=== PATIENT | male | born 1960 | race Caucasian/White ===

== ENCOUNTER 2025-09-23 07:40 | Outpatient (CLI) | payer OTHER ==
[2025-09-23 09:06] LABS: Estimated GFR - POC 84.0
[2025-09-23] MEDS ORDERED: Iopamidol 300 61% 100 ML VIAL FS ONE (11:29)
== END 2025-09-23 07:41 | disposition home or self-care (01) ==
LOC: CSHCT 07:40
PROVIDERS: ATTEND Internal Medicine
DX: R31.9 Hematuria, unspecified (principal); J30.1 Allergic rhinitis due to pollen; N32.89 Other specified disorders of bladder; K80.20 Calculus of gallbladder without cholecystitis without obstruction; K43.9 Ventral hernia without obstruction or gangrene; J32.8 Other chronic sinusitis; H74.8X1 Other specified disorders of right middle ear and mastoid
CPT/HCPCS: 36415; 74178; 82565